=== PATIENT | female | born 1985 | race Two or more races ===

== ENCOUNTER 2025-01-25 15:02 | Emergency (ER) | payer MEDICAID, SELFPAY ==
[2025-01-25 15:15] VITALS: BP 133/87; PULSE 80; RESP 18; TEMP 36.8; O2SAT 97; BMI 37.0
--- NOTE | 2025-01-25 15:31 | PD.EDRME ---
Rapid Medical Screening Exam RME Arrival date/time: 01/25/25 15:02 39-year-old female with no known medical history presents to the emergency room with a chief complaint of dizziness, lightheadedness, visual disturbances, and a lump behind her ear x 1 week I have greeted and performed a focused initial assessment of this patient. A comprehensive ED assessment and evaluation of the patient, analysis of all test results, and completion of the medical decision making process will be conducted by additional ED providers. Chief Complaint: Skin/Abscess/Foreign Body Vital signs: Vital Signs Temperature 98.3 F 01/25/25 15:15 Pulse Rate 80 01/25/25 15:15 Respiratory Rate 18 01/25/25 15:15 Blood Pressure 133/87 H 01/25/25 15:15 Pulse Oximetry (%) 97 01/25/25 15:15 Oxygen Delivery Method Room Air 01/25/25 15:15 Vital signs reviewed by provider: Yes
--- NOTE | 2025-01-25 16:07 | PC.NURSE ---
PT STATED THAT SHE WAS JUST GOING TO LEAVE SINCE IT IS THE SAME THE DOCTORS . TOLD PT THAT I CAN CALL THE PROVIDER BACK AGAIN IF SHE WANTED TO TALK AGAIN. PT DECLINED AND STATED SHE WOULD JUST SIGNOUT AND FINISH HER MEDICINE AT HOME. INFORMED PT THAT SHE NEEDED TO SIGN OUT AMA WITH TRIAGE NURSE.
--- NOTE | 2025-01-25 16:11 | PC.NURSE ---
NO ANSWER WHEN CALLED FROM LOBBY/OUTSIDE AT 1613
--- NOTE | 2025-01-25 16:17 | PC.NURSE ---
NAx2 1616 for medication.
== END 2025-01-25 16:41 | disposition left against medical advice (07) ==
LOC: SERX 15:46
PROVIDERS: Emergency Provider Emergency Medicine
DX: R42 Dizziness and giddiness (principal); H53.9 Unspecified visual disturbance; H93.8X9 Other specified disorders of ear, unspecified ear; Z53.29 Procedure and treatment not carried out because of patient's decision for other reasons
CPT/HCPCS: 80053; 81001; 84484; 85025; 87086; 99283

== ENCOUNTER 2025-01-27 09:58 | Emergency (ER) | payer MEDICAID, SELFPAY ==
[2025-01-27 10:13] VITALS: BP 119/83; PULSE 76; RESP 17; TEMP 37.1; O2SAT 98
--- NOTE | 2025-01-27 10:19 | XR_ITS ---
Examination: CT brain head without contrast. 2-D sagittal coronal reconstructions Date and time of exam:January 27, 2025 10:50 AM INDICATIONS: Onset generalized head pain and dizziness today CTDI: vol (mGy):54.2 DLP: (mGycm):1071 Technique: Multiple CT axial sections of the brain have been obtained, 5 mm slice thickness. Contrast has not been administered. 2-D sagittal, coronal reconstructions have been obtained Low dose protocols were performed. One or more of the following dose reduction techniques were used; automated exposure control, adjustment of the mA and/or KV according to patient size, use of iterative reconstruction technique. Findings: No significant ventricular enlargement. Intra-axial or extra-axial hemorrhage density is not seen. No mass effect or midline shift Basal cisterns are not remarkable. Fourth ventricle is midline. Cranial vault intact. Impression: Negative for acute hemorrhage, mass effect or midline shift Advise clinical correlation follow-up accordingly
--- NOTE | 2025-01-27 10:20 | PD.EDRME ---
Rapid Medical Screening Exam RME Arrival date/time: 01/27/25 09:58 39-year-old female presents to the emergency department today for complaints of lymph node swelling to her scalp patient was a poor generalized bodyaches Chief Complaint: General Adult/Misc Complain Vital signs: Vital Signs Temperature 98.7 F 01/27/25 10:13 Pulse Rate 76 01/27/25 10:13 Respiratory Rate 17 01/27/25 10:13 Blood Pressure 119/83 01/27/25 10:13 Pulse Oximetry (%) 98 01/27/25 10:13 Oxygen Delivery Method Room Air 01/27/25 10:13
[2025-01-27 10:34] LABS: Collection Type, Urine Clean Catch
[2025-01-27 10:40] LABS: Bilirubin,Urine Negative (Negative); Blood,Urine Negative (Negative); Clarity,Urine Clear (Clear/Hazy); Color,Urine Colorless (Lt Yel-Yel); Culture Indicated,Urine Not Indicated; Glucose, Urine 4+ (Negative); Ketones,Urine Negative (Negative); Leukocyte Esterase,Urine Negative (Negative); Nitrite,Urine Negative (Negative); PH,Urine 6.0 (5.0-7.0); Protein,Urine Negative (Neg - Trace); RBC,Urine < 1 /hpf (0-3); Specific Gravity,Urine 1.032 (1.001-1.035); Squamous Epithelial Cell,Urine 4 /hpf (0-5); Urobilinogen,Urine Negative mg/dL (0.0-1.0); WBC,Urine 1 /hpf (0-5)
[2025-01-27 10:43] LABS: Basophils # (Auto) 0.1 Thou/mm3 (0.0-0.2); Basophils % (Auto) 1 % (0-2.5); Eosinophils # (Auto) 0.3 Thou/mm3 (0.0-0.5); Eosinophils % (Auto) 3 % (0-10); Hematocrit 41.5 % (36.0-46.0); Hemoglobin 13.9 g/dL (12.0-16.0); Immature Granulocytes Auto 0.02 Thou/mm3 (0.00-0.00); Lymphocytes # (Auto) 2.2 Thou/mm3 (1.0-4.8); Lymphocytes % (Auto) 25 % (10-50); Mean Corpuscular HGB Conc 33.5 g/dl (31.0-37.0); Mean Corpuscular Hemoglobin 27.0 pg (25.0-35.0); Mean Corpuscular Volume 81 fL (80-100); Monocytes # (Auto) 0.4 Thou/mm3 (0.0-0.8); Monocytes % (Auto) 5 % (0-12); Neutrophils # (Auto) 6.0 Thou/mm3 (1.8-7.7); Neutrophils % (Auto) 67 % (37-80); Nucleated Red Blood Cell # 0.00 Thou/mm3 (0.00-0.00); Nucleated Red Blood Cell % 0 /100 WBC (0); Platelet Count 263 Thou/mm3 (140-440); RDW Standard Deviation 37.8 fL (36.4-46.3); Red Blood Count 5.14 Miln/mm3 (4.00-5.20); White Blood Count 9.0 Thou/mm3 (3.6-11.0)
[2025-01-27 11:03] LABS: Alanine Aminotransferase 11 U/L (10-49); Albumin, Serum 4.5 gm/dL (3.5-5.0); Albumin/Globulin Ratio 1.7 (1.2-2.2); Alkaline Phosphatase 117 U/L (46-116); Anion Gap 8 (7-16); Aspartate Amino Transferase 10 U/L (0-34); BUN/Creatinine Ratio 10 Ratio (12-20); Bilirubin,Total 0.3 mg/dL (0.3-1.2); Blood Urea Nitrogen 9 mg/dL (9-23); Calcium 9.5 mg/dL (8.3-10.6); Calcium (Corrected) 9.5 mg/dL (8.5-10.1); Carbon Dioxide 26.7 mMol/L (20.0-31.0); Chloride 102 mMol/L (98-107); Creatinine (Component) 0.9 mg/dL (0.6-1.3); Globulin 2.7 gm/dL (2.3-3.5); Glucose 259 mg/dL (74-106); Osmolality,Calculated 281 (275-295); Potassium 4.3 mMol/L (3.4-5.1); Sodium 137 mMol/L (136-145); Total Protein 7.2 gm/dL (5.7-8.2); eGFR > 60 See Note
--- NOTE | 2025-01-27 12:18 | PD.EDADULT ---
ED General RME/HPI General Chief complaint: General Adult/Misc Complain Stated complaint: LYMPH NODE SWELLING RIGHT POSTERIOR EAR Time Seen by Provider: 01/27/25 12:05 Arrival date/time: 01/27/25 09:58 RME / HPI RME / HPI narrative: 39-year-old female presents to the emergency department today for complaints of lymph node swelling to her scalp patient was a poor generalized bodyaches. This been ongoing for the last few days. Patient was seen by PCP, and was started on Keflex. According to her the swelling to the occipital scalp area is getting worst given her generalized body weakness. Denies any fever denies any other complaints no medication was taken prior to ER visit. Related Data Home Medications ?Medication ?Instructions ?Recorded ?Confirmed insulin regular human 100 unit/mL 30 unit subcut WBR 03/15/20 04/21/20 injection solution levothyroxine 150 mcg tablet 150 mcg PO QDAY 03/15/20 04/21/20 prenat.vits,adrian,hwf-edya-bngsh 1 tab PO QDAY 03/15/20 04/21/20 Previous Rx's ?Medication ?Instructions ?Recorded hydrocodone 5 mg-acetaminophen 325 1 tab PO Q6H PRN pain #30 tabs 04/21/20 mg tablet (Milton) hydrocodone 5 mg-acetaminophen 325 1 tab PO Q6H PRN pain #30 tabs 04/21/20 mg tablet (Milton) ibuprofen 800 mg tablet 800 mg PO TID PRN pain #30 tabs 11/10/23 ibuprofen 800 mg tablet 800 mg PO Q8H PRN pain #30 tabs 01/27/25 sulfamethoxazole 800 1 tab PO BID 10 days #20 tabs 01/27/25 mg-trimethoprim 160 mg tablet (Bactrim DS) Allergies Allergy/AdvReac Type Severity Reaction Status Date / Time No Known Allergies Allergy Verified 01/25/25 15:08 Review of Systems Review of Systems Narrative Review of Systems: Review of system reviewed and within normal limits except mentioned in HPI ED Exam Narrative Physical exam: VITAL SIGNS: Reviewed. GENERAL APPEARANCE: Alert and interactive, follows commands, no acute distress, HEAD AND FACE: Non-traumatic.+2x2 cm scalp swelling, occipital area, nonfluctuant, with tenderness mild redness noted ENT: PERRL, pink conjunctivitis, eyelid no trauma, Mucous membrane moist. NECK: Supple, nontender, no nuchal rigidity. CHEST: No tenderness, no crepitus, no paradoxical movement, no retractions. LUNGS: Clear, well ventilated, symmetric, no rales, no wheezing, no ronchi, no stridor, good breath sounds bilaterally. HEART: Regular rate, regular rhythm, no murmur, no gallops. ABDOMEN: Soft, positive bowel sounds, nondistended, no guarding, nontender, no rebound, no masses, RECTAL: Deferred. GENITAL: Deferred. NEUROLOGICAL: Gross motor function intact sensory function intact, Appropriate for age. MUSCULOSKELETAL: low back nontender, full range of motion. EXTREMITIES: Nontender, full range of motion. SKIN: Color pink, dry, no rash, no lacerations, no abrasions, no contusions. LYMPHATICS: Deferred. Course Quality Measures none Orders Category Date Time Status CT head/brain wo con Stat Exams 01/27/25 10:19 Completed CBC Stat Lab 01/27/25 10:33 Completed CMP [Comprehensive Metabolic Panel] Stat Lab 01/27/25 10:33 Completed UA, C/S IF [Urinalysis, C/S if Indicated] Stat Lab 01/27/25 10:27 Completed Ibuprofen Tab [Motrin Tab] Med 01/27/25 12:13 Discontinued 800 mg PO X1 ONE Trimethoprim/Sulfa 160/800 Ds [Bactrim Ds] Med 01/27/25 12:13 Discontinued 1 tab PO X1 ONE Vital Signs Vital signs: Vital Signs Temperature 98.7 F 01/27/25 10:13 Pulse Rate 76 01/27/25 10:13 Respiratory Rate 17 01/27/25 10:13 Blood Pressure 119/83 01/27/25 10:13 Pulse Oximetry (%) 98 01/27/25 10:13 Oxygen Delivery Method Room Air 01/27/25 10:13 Discharge Plan Plan Patient Disposition: HOME (Self Care) Discharge Disposition comment: Stable Prescriptions/Referrals Prescriptions/Med Rec: New sulfamethoxazole-trimethoprim [Bactrim DS] 800-160 mg tablet 1 tab PO BID 10 Days Qty: 20 0RF ibuprofen 800 mg tablet 800 mg PO Q8H PRN (Reason: pain) Qty: 30 0RF No Action hydrocodone-acetaminophen [Milton] 5-325 mg tablet 1 tab PO Q6H MDD 4 PRN (Reason: pain) Qty: 30 0RF hydrocodone-acetaminophen [Milton] 5-325 mg tablet 1 tab PO Q6H MDD 4 PRN (Reason: pain) Qty: 30 0RF insulin regular human 100 unit/mL Solution 30 unit SUBCUT WBR levothyroxine 150 mcg Tablet 150 mcg PO QDAY prenat.vits,adrian,uhp-yhnw-rjqci Tablet 1 tab PO QDAY ibuprofen 800 mg tablet 800 mg PO TID PRN (Reason: pain) Qty: 30 0RF Referrals: Mayra Hutchinson, COORDINATE MEASURING MACHINE OPERATOR [Primary Care Provider] - In 1 week Problem List Clinical Impression: Infection of scalp Patient/Caregiver Discharge Instructions Discharge Activity: activity as tolerated Education Materials: ED Cellulitis Additional Instructions: Thank you for the opportunity for serving you today. You are stable for discharged . You are advised to: Follow-up with your PCP in 1 to 2 days Return to ED for worsening of symptoms Increase oral fluids Take medication as prescribed Print Language: Mohawk Stand Alone Forms: Jessica Award Info., Patient Portal Info Letter MADINA/CLARY Supervising Physician MADINA/CLARY Supervising Physician: MD Toya MDM Narrative MDM hospital course (for use when minimal MDM required): 39-year-old female presents to the emergency department today for complaints of lymph node swelling to her scalp patient was a poor generalized bodyaches. This been ongoing for the last few days. Patient was seen by PCP, and was started on Keflex. According to her the swelling to the occipital scalp area is getting worst given her generalized body weakness. Denies any fever denies any other complaints no medication was taken prior to ER visit. Patient's workup today all came back unremarkable no leukocytosis noted, CT scan of the head came back unremarkable. I believe patient is having scalp infection, is not to be due for I&D at this time, patient will be on Bactrim also. Patient stable for discharge home. Patient was advised to return to emergency room in 3 to 4 days for possible I&D. Patient agrees with the plan Patient appears nontoxic and hemodynamically stable .Decision to discharge the patient. The patient/family was given an opportunity to ask questions and understood their discharge instructions. Discharge instructions specifically included follow up provider and time frame, current and/or new medications and possible side effects, indications for sooner follow up or return to the emergency department, and the expected course of current diagnosis. Patient reports feeling better as well and giving evidence of significant clinical improvement, I believe patient is now a candidate for discharge. Labs/Rad/Tests considered, not ordered Describe: See results MDM Chronic Illness/Social Conditions Explain: Diabetes mellitus Labs Lab(s) Interpretation(s): See MDM Imaging Imaging Interpretation(s): CT scan of the head came back unremarkable. Medication Administration(s) Medication Administration History Discontinued Medications Ibuprofen (Ibuprofen Tab 400 Mg Tablet) 800 mg PO X1 ONE Stop: 01/27/25 12:14 Trimethoprim/Sulfamethoxazole (Trimethoprim/Sulfa 160/800 Ds Tablet) 1 tab PO X1 ONE Stop: 01/27/25 12:14 Diagnosis Differential Diagnosis ED Complaint MDM: Scalp infection cellulitis scalp, abscess scalp Diagnoses ruled out and/or further discussions: Scalp infection cellulitis scalp
--- NOTE | 2025-01-27 14:02 | PC.NURSE ---
PROVIDER SPOKE WITH PT ABOUT RESULTS. PT CALLED [facility] FOR D/C PAPERWORK. PT NOT FOUND IN OR OUTSIDE OF LOBBY. PT LEFT WITHOUT PAPERWORK.
== END 2025-01-27 14:04 | disposition home or self-care (01) ==
PROVIDERS: Nurse Practitioner Primary Care; Emergency Provider Family Medicine; PCP Nurse Practitioner Family
DX: R59.0 Localized enlarged lymph nodes (principal); L08.9 Local infection of the skin and subcutaneous tissue, unspecified; R51.9 Headache, unspecified; R42 Dizziness and giddiness
CPT/HCPCS: 36415; 70450; 80053; 81001; 85025; 99283